=== PATIENT | female | born 1995 | race Caucasian/White ===

== ENCOUNTER 2019-04-09 14:32 | Outpatient (CLI) | payer MEDICAID | END 2019-04-09 23:59 | disposition home or self-care (01) | LOC: CARD DIAG 14:32 | PROVIDERS: ATTEND Nurse Practitioner Obstetrics & Gynecology | DX: R00.0 Tachycardia, unspecified (principal); Z87.74 Personal history of (corrected) congenital malformations of heart and circulatory system; Z87.891 Personal history of nicotine dependence | CPT/HCPCS: 93005; 93306 ==

== ENCOUNTER 2020-01-31 05:13 | Day surgery (SDC) | payer MEDICAID ==
[2020-01-28 09:56] LABS: BASOPHILS % (AUTO) 0.3 % (0-1); EOSINOPHILS # (AUTO) 0.3 X10'3 (0-0.9); EOSINOPHILS % (AUTO) 4.2 % (0-6); LYMPHOCYTES # (AUTO) 2.8 X10'3 (1.1-4.8); MEAN CORPUSCULAR HEMOGLOBIN 28.6 PG (27.0-31.0); MEAN CORPUSCULAR HGB CONC 33.6 g/dL (33.0-36.5); MEAN CORPUSCULAR VOLUME 85.1 FL (78-98); MEAN PLATELET VOLUME 9.8 FL (7.4-10.4); MONOCYTES # (AUTO) 0.5 X10'3 (0-0.9); MONOCYTES % (AUTO) 6.1 % (2-12); NEUTROPHILS # (AUTO) 4.4 X10'3 (1.8-7.7); NEUTROPHILS % (AUTO) 54.4 % (42-75); PRE OP HEMATOCRIT 36.4 % (35.0-45.0); PRE OP HEMOGLOBIN 12.2 g/dL (12.0-16.0); PRE OP PLATELET COUNT 316 X10'3 (140-440); RED BLOOD COUNT 4.28 X10'6 (4.20-5.60); RED CELL DISTRIBUTION WIDTH 15.3 % (11.5-14.5)
[2020-01-28 10:10] LABS: HCG SERUM QL NEGATIVE
[2020-01-28 10:12] LABS: ALBUMIN/GLOBULIN RATIO 1.1 (1.1-1.5); ALKALINE PHOSPHATASE 72 IU/L (46-116); BLOOD UREA NITROGEN 13 MG/DL (7-18); BUN/CREATININE RATIO 17.6 (6.6-38.0); CALCIUM 9.4 MG/DL (8.5-10.1); CHLORIDE 105 MMOL/L (99-107); CREATININE 0.74 MG/DL (0.40-0.90); PRE OP ALT 22 U/L (30-65); PRE OP ANION GAP 10 (8-16); PRE OP AST 15 U/L (10-37); PRE OP BILIRUB, TOTAL 1.2 MG/DL (0.0-1.0); PRE OP GLUCOSE 85 MG/DL (70-104); PRE OP POTASSIUM 3.9 MMOL/L (3.4-5.1); PRE OP SODIUM 142 MMOL/L (135-145); TOTAL PROTEIN 7.7 G/DL (6.4-8.2); eGFR > 90 ML/MIN
[2020-01-31] VITALS (8 sets, daily range): BP systolic 99–133; BP diastolic 54–73
[~2020-01-31] VITALS: Ht 157.5 cm; Wt 102.9 kg
[~2020-01-31 05:13] MED LIST: FLUT16SP20 NAS; MULT-1074 PO; ringers solution, lacted 1,000 ML IV SCH
[2020-01-31] MEDS ORDERED: famotidine 20mg tablet PO ONE (05:30)
[2020-01-31] MEDS ORDERED: LIDOcaine 1% (10mg/ml) 2ml vial ONE (05:35)
[2020-01-31] MEDS ORDERED: fentaNYL/PF 50MCG/1 ML 2ML syringe ONE (07:43)
[2020-01-31] MEDS ORDERED: midazolam 2 mg/2 ml injection ONE (07:43)
[2020-01-31] MEDS ORDERED: ondansetron/PF 4mg/2ml inj ONE (07:45)
[2020-01-31] MEDS ORDERED: dexamethasone sod phosphate 4mg/ml inj. ONE (07:45)
[2020-01-31] MEDS ORDERED: propofol inj 20 ML IV ONE (07:45)
[2020-01-31] MEDS ORDERED: ketorolac trometh. 30mg/ml inj. ONE (07:45)
[2020-01-31] MEDS ORDERED: LIDOcaine 2% (20mg/ml) 5ml vial ONE (07:45)
[2020-01-31] MEDS ORDERED: ringers solution, lacted 1,000 ML IV SCH (07:50)
[2020-01-31] MEDS ORDERED: proCHLORperazine 10 MG/2 ml inj IV PRN (07:50)
[2020-01-31] MEDS ORDERED: morphine 4 MG/ML inj SYRINge IV PRN (07:50)
[2020-01-31] MEDS ORDERED: ondansetron/PF 4mg/2ml inj IV PRN (07:50)
[2020-01-31] MEDS ORDERED: meperidine/PF 25mg/ml syringe IV PRN ×3 (07:50)
[2020-01-31] MEDS ORDERED: morphine 2 MG/ML inj. syringe IV PRN (07:50)
[2020-01-31] MEDS ORDERED: sevoflurane 250ml liquid IH ONE (07:52)
[2020-01-31] MEDS ORDERED: glycopyrrolate 0.2mg/ml inj ONE (07:52)
[2020-01-31] MEDS ORDERED: neostigmine methylsulfate 1 MG/ML 10ml vial ONE (07:52)
[2020-01-31] MEDS ORDERED: rocuronium 10mg/ml inj IV ONE (08:11)
--- NOTE | 2020-01-31 09:09 | NUR ---
Received from OR via , accompanied by Anesthesiologist DR CERVANTES and report given by Anesthesiolgist. AWAKENS TO VOICE. VITALS STABLE. DRESSINGS DI. SHWETHA PAIN.
--- NOTE | 2020-01-31 10:09 | NUR ---
AWAKE AND ORIENTED. VITALS STABLE. DRESSINGS DI. SHWETHA PAIN. HOME WITH HER SPOUSE AT THIS TIME.
== END 2020-01-31 10:09 | disposition home or self-care (01) ==
LOC: PAS 05:13
PROVIDERS: ATTEND Obstetrics & Gynecology
DX: Z30.2 Encounter for sterilization (principal); J45.909 Unspecified asthma, uncomplicated; E66.9 Obesity, unspecified; Z68.41 Body mass index [BMI] 40.0-44.9, adult; Z79.899 Other long term (current) drug therapy; Z90.49 Acquired absence of other specified parts of digestive tract; Z98.890 Other specified postprocedural states; Z87.891 Personal history of nicotine dependence; Z11.59 Encounter for screening for other viral diseases
CPT/HCPCS: 36415; 58670; 80053; 82948; 84703; 85025; J1100; J1885; J2001; J2250; J2405; J2704; J2710; J3010; J7120; U0003; A4618; A7000; J3490

== ENCOUNTER 2020-03-02 20:19 | Inpatient (IN) | payer MEDICAID ==
[~2020-03-02] VITALS: Ht 157.5 cm; Wt 98.6 kg
[~2020-03-02 20:19] MED LIST changes: -ringers solution, lacted 1,000 ML IV SCH
[2020-03-02 22:23] LABS: BASOPHILS % (AUTO) 0.3 % (0-1); EOSINOPHILS # (AUTO) 0.2 X10'3 (0-0.9); EOSINOPHILS % (AUTO) 1.8 % (0-6); HEMATOCRIT 33.4 % (35.0-45.0); HEMOGLOBIN 11.2 g/dl (12.0-16.0); LYMPHOCYTES % (AUTO) 29.3 % (21-51); MEAN CORPUSCULAR HEMOGLOBIN 28.9 PG (27.0-31.0); MEAN CORPUSCULAR HGB CONC 33.5 g/dL (33.0-36.5); MEAN CORPUSCULAR VOLUME 86.4 FL (78-98); MONOCYTES % (AUTO) 7.1 % (2-12); NEUTROPHILS # (AUTO) 8.5 X10'3 (1.8-7.7); NEUTROPHILS % (AUTO) 61.5 % (42-75); PLATELET COUNT 282 X10'3 (140-440); RED BLOOD COUNT 3.87 X10'6 (4.20-5.60); RED CELL DISTRIBUTION WIDTH 15.2 % (11.5-14.5); WHITE BLOOD COUNT 13.8 X10'3 (4.5-11.0)
[2020-03-02 22:40] LABS: ALANINE AMINOTRANSFERASE 28 U/L (12-78); ALBUMIN 3.8 G/DL (3.4-5.0); ALBUMIN/GLOBULIN RATIO 1.2 (1.1-1.5); ALKALINE PHOSPHATASE 62 IU/L (46-116); ANION GAP 7 (8-16); ASPARTATE AMINO TRANSFERASE 11 U/L (10-37); BILIRUBIN,TOTAL 1.1 MG/DL (0.1-1.0); BLOOD UREA NITROGEN 17 MG/DL (7-18); BUN/CREATININE RATIO 18.9 (6.6-38.0); CALCIUM 8.5 MG/DL (8.5-10.1); CHLORIDE 108 MMOL/L (99-107); GLUCOSE 85 MG/DL (70-104); POTASSIUM 3.7 MMOL/L (3.5-5.1); SODIUM 144 MMOL/L (135-145); TOTAL CARBON DIOXIDE 29.4 MMOL/L (24-32); eGFR 78 ML/MIN
[2020-03-03] MEDS ORDERED: magnesium Cl slow-release 64mg tablet PO PRN (00:50)
[2020-03-03] MEDS ORDERED: potassium Cl 20 mEq SR tablet PO PRN ×2 (00:50)
[2020-03-03] MEDS ORDERED: HYDROcodone/acetaminophen 5mg/325mg tablet PO PRN (00:50)
[2020-03-03] MEDS ORDERED: magnesium 4gm in 100ml NS 100 ML IV PRN (00:50)
[2020-03-03] MEDS ORDERED: mag hydrox/Alum hydrox/simeth 30ml oral suspension PO PRN (00:50)
[2020-03-03] MEDS ORDERED: magnesium hydroxide 30ml (MOM) UD suspension PO PRN (00:50)
[2020-03-03] MEDS ORDERED: acetaminophen 325mg tablet PO PRN (00:50)
[2020-03-03] MEDS ORDERED: magnesium 2GM in 50ml NS 50 ML IV PRN (00:50)
[2020-03-03] MEDS ORDERED: potassium CL 10mEq/100ml bag 100 ML IV PRN ×2 (00:50)
[2020-03-03] MEDS ORDERED: ondansetron/PF 4mg/2ml inj IV PRN (00:50)
--- NOTE | 2020-03-03 02:01 | NUR ---
Patient in ED room 14 to be transferred to SURG 340B. Report given to HANSEL Blankenship.
--- NOTE | 2020-03-03 02:26 | NUR ---
Received report from Emily HAMM in the ER. Pt arrived via wheelchair and was able to ambulate to her bed. Pt was on room air, SL with VSS and no signs of distress. Will continue to monitor.
[2020-03-03 02:31] LABS: URINE HCG NEGATIVE (NEG)
[2020-03-03 02:32] LABS: CLARITY,URINE SLIGHTLY CLOUDY (Clear); COLOR,URINE YELLOW (Yellow); GLUCOSE, URINE NEGATIVE (Neg); KETONES,URINE NEGATIVE (Neg); LEUKOCYTE ESTERASE ,URINE NEGATIVE (Neg); NITRITES, URINE NEGATIVE (Neg); OCCULT BLOOD,URINE NEGATIVE (Neg); PROTEIN,URINE NEGATIVE (Neg)
[2020-03-03 02:37] VITALS: BP 111/77
[2020-03-03 02:38] LABS: BACTERIA,URINE NONE SEEN /HPF (Neg); RBC,URINE NONE SEEN /HPF (0-2); SQUAMOUS EPITHELIAL CELL,UR FEW /LPF (FEW); UA COLLECTION TYPE CLN CATCH MIDSTREAM; WBC,URINE 0-4 /HPF (0-4)
--- NOTE | 2020-03-03 06:05 | NUR ---
Patient in room [facility] 340. I have received report from Raeann HAMM and had the opportunity to ask questions and assume patient care.
--- NOTE | 2020-03-03 06:10 | NUR ---
Problems reprioritized. Patient report given, questions answered & plan of care reviewed with Rimma HAMM.
[2020-03-03 06:59] VITALS: BP 95/65
[2020-03-03 07:03] VITALS: BP 95/65
[2020-03-03] MEDS ORDERED: docusate sod 100mg capsule PO SCH (08:00)
[2020-03-03] MEDS ORDERED: K and/or MAG REPLACEMENT MC SCH (08:00)
--- NOTE | 2020-03-03 09:47 | NUR ---
PAGER ID: [phone] MESSAGE: Mike in 340B: needs Ativan for MRI, she's claustrophobic please! Rimma [phone]
[2020-03-03] MEDS ORDERED: LORazepam 2 mg/ml vial IV ONE (09:50)
--- NOTE | 2020-03-03 11:24 | NUR ---
Nutrition consult re: "10 lb wt loss in a month with decreased appetite". Per malnutrition risk screen pt reports 2-13 lb wt loss with no decrease in appetite. Pt with scaled wt hx of 102.9 kg taken 01/30 with a standing scale, current documented wt is 98.6 kg however is unreliable as it isn't scaled. Per H&P pt with no N/V/abdominal pain or change in appetite. Pt on a heart healthy diet documented with 75-100% PO intake first meal. Pt appears well developed, well nourished per ED report. Pt admit with bilat leg numbness, documented with mild weakness to BLE and bilat food 1+ trace edema. Pt currently lacks a minimum of two criteria for malnutrition. Will continue to follow. Addendum: 03/03/20 at [address] Amended: Links added.
[2020-03-03] MEDS ORDERED: GADOTERATE MEGLUMINE 7.5 MMOL/15 ML VIAL IV ONE (12:19)
[2020-03-03 13:23] VITALS: BP 117/67
[2020-03-03 14:28] LABS: BASOPHILS # (AUTO) 0.1 X10'3 (0-0.2); BASOPHILS % (AUTO) 0.6 % (0-1); EOSINOPHILS # (AUTO) 0.2 X10'3 (0-0.9); EOSINOPHILS % (AUTO) 1.6 % (0-6); HEMATOCRIT 35.1 % (35.0-45.0); HEMOGLOBIN 11.7 g/dl (12.0-16.0); LYMPHOCYTES # (AUTO) 2.6 X10'3 (1.1-4.8); LYMPHOCYTES % (AUTO) 24.6 % (21-51); MEAN CORPUSCULAR HEMOGLOBIN 28.6 PG (27.0-31.0); MEAN CORPUSCULAR HGB CONC 33.3 g/dL (33.0-36.5); MEAN PLATELET VOLUME 10.4 FL (7.4-10.4); MONOCYTES # (AUTO) 0.6 X10'3 (0-0.9); NEUTROPHILS # (AUTO) 7.2 X10'3 (1.8-7.7); NEUTROPHILS % (AUTO) 67.2 % (42-75); PLATELET COUNT 295 X10'3 (140-440); RED BLOOD COUNT 4.08 X10'6 (4.20-5.60); RED CELL DISTRIBUTION WIDTH 15.2 % (11.5-14.5); WHITE BLOOD COUNT 10.7 X10'3 (4.5-11.0)
[2020-03-03] MEDS ORDERED: GABA100C PO (14:42)
--- NOTE | 2020-03-03 17:07 | NUR ---
Patient discharged, ambulated out, very stable gait. Tech SBA to lobby. No issues. AFVSS, no distress noted currently at discharge. All paper work completed and signed. Education completed. Patient to follow up with PCP in 1 week.
== END 2020-03-03 17:13 | disposition home or self-care (01) | DRG 58 ==
LOC: ER 20:20 → ED HOLD 03-03 00:46 → SUR 3N 03-03 02:18 → OBSVTOIN 03-03 08:45
PROVIDERS: ADMIT Family Medicine; ATTEND Family Medicine
PROC: BW38YZZ Magnetic Resonance Imaging (MRI) of Head using Other Contrast (ICD-10-PCS; principal; 2020-03-03)
DX: R20.0 Anesthesia of skin (principal); Z98.51 Tubal ligation status; Z79.899 Other long term (current) drug therapy
CPT/HCPCS: 36415; 70546; 80053; 81001; 81025; 84443; 85025; 87081; 97110; 97116; 97163; 99285; A9575; G0378; J2060

== ENCOUNTER 2020-03-28 20:10 | Emergency (ER) | payer MEDICAID ==
[~2020-03-28] VITALS: Ht 154.9 cm; Wt 99.5 kg
[~2020-03-28 20:10] MED LIST changes: +GABA100C PO
[2020-03-28 21:42] VITALS: BP 159/86
== END 2020-03-28 21:45 | disposition home or self-care (01) ==
LOC: ER 20:11
DX: R20.0 Anesthesia of skin (principal); H53.8 Other visual disturbances; Z98.51 Tubal ligation status; Z98.890 Other specified postprocedural states; Z72.89 Other problems related to lifestyle; Z79.899 Other long term (current) drug therapy
CPT/HCPCS: 99281; 99283

== ENCOUNTER 2020-09-14 11:44 | Emergency (ER) | payer MEDICAID ==
[~2020-09-14] VITALS: Ht 157.5 cm; Wt 100.0 kg
[2020-09-14 11:47] VITALS: BP 136/86
[2020-09-14] MEDS ORDERED: ibuprofen 200mg tablet PO ONE (14:40)
[2020-09-14] MEDS ORDERED: HYDR-3965 PO (15:10)
== END 2020-09-14 15:49 | disposition home or self-care (01) ==
LOC: ER 11:45
DX: S99.922A Unspecified injury of left foot, initial encounter (principal); R20.2 Paresthesia of skin; Z98.51 Tubal ligation status; Z72.89 Other problems related to lifestyle; Z79.899 Other long term (current) drug therapy; W05.1XXA Fall from non-moving nonmotorized scooter, initial encounter; Z91.81 History of falling; Y93.89 Activity, other specified; Y92.89 Other specified places as the place of occurrence of the external cause; Y99.8 Other external cause status
CPT/HCPCS: 29515; 73590; 99284

== ENCOUNTER 2021-02-03 00:10 | Emergency (ER) | payer MEDICAID ==
[~2021-02-03] VITALS: Ht 154.9 cm; Wt 98.3 kg
--- NOTE | 2021-02-03 01:32 | NUR ---
Pt didn't finish ABX for UTI because they make her drowsy and she can't afford to fall asleep at work
[2021-02-03] MEDS ORDERED: ONDA4TAB6 PO (02:39)
[2021-02-03] MEDS ORDERED: MECL-159 PO (02:39)
[2021-02-03] MEDS ORDERED: ondansetron 4mg rapidly disintigrating tab PO ONE (02:40)
[2021-02-03] MEDS ORDERED: meclizine 12.5mg tablet PO ONE (02:40)
[2021-02-03 02:45] VITALS: BP 117/76
== END 2021-02-03 02:47 | disposition home or self-care (01) ==
LOC: ER 00:11
DX: R42 Dizziness and giddiness (principal); Z98.51 Tubal ligation status; Z98.890 Other specified postprocedural states; Z72.89 Other problems related to lifestyle; Z79.899 Other long term (current) drug therapy
CPT/HCPCS: 99283; J8597

== ENCOUNTER 2021-08-10 16:59 | Emergency (ER) | payer OTHER, MEDICAID ==
[~2021-08-10] VITALS: Ht 154.9 cm; Wt 95.5 kg
[~2021-08-10 16:59] MED LIST changes: +MECL-159 PO; +ONDA4TAB6 PO
[2021-08-10 17:08] VITALS: BP 135/93
[2021-08-10 18:20] LABS: ALANINE AMINOTRANSFERASE 15 U/L (12-78); ALKALINE PHOSPHATASE 59 IU/L (46-116); ANION GAP 8 (8-16); ASPARTATE AMINO TRANSFERASE 10 U/L (10-37); BILIRUBIN,TOTAL 0.4 MG/DL (0.1-1.0); BLOOD UREA NITROGEN 17 MG/DL (7-18); CHLORIDE 103 MMOL/L (99-107); CREATININE 0.68 MG/DL (0.40-0.90); GLUCOSE 100 MG/DL (70-104); POTASSIUM 3.6 MMOL/L (3.5-5.1); SODIUM 140 MMOL/L (135-145); TOTAL CARBON DIOXIDE 29.1 MMOL/L (24-32); TOTAL PROTEIN 8.2 G/DL (6.4-8.2); eGFR > 90 ML/MIN
[2021-08-10 18:27] LABS: BASOPHILS % (AUTO) 0.3 % (0-1); EOSINOPHILS # (AUTO) 0.1 X10'3 (0-0.9); EOSINOPHILS % (AUTO) 0.9 % (0-6); HEMATOCRIT 35.1 % (35.0-45.0); LYMPHOCYTES # (AUTO) 3.4 X10'3 (1.1-4.8); LYMPHOCYTES % (AUTO) 23.1 % (21-51); MEAN CORPUSCULAR HEMOGLOBIN 29.8 PG (27.0-31.0); MEAN CORPUSCULAR HGB CONC 34.2 g/dL (33.0-36.5); MEAN PLATELET VOLUME 10.1 FL (7.4-10.4); MONOCYTES # (AUTO) 0.7 X10'3 (0-0.9); MONOCYTES % (AUTO) 5.1 % (2-12); NEUTROPHILS # (AUTO) 10.3 X10'3 (1.8-7.7); NEUTROPHILS % (AUTO) 70.6 % (42-75); PLATELET COUNT 324 X10'3 (140-440); RED BLOOD COUNT 4.04 X10'6 (4.20-5.60); RED CELL DISTRIBUTION WIDTH 13.6 % (11.5-14.5); WHITE BLOOD COUNT 14.6 X10'3 (4.5-11.0)
[2021-08-10 19:13] LABS: URINE HCG NEGATIVE (NEG)
[2021-08-10 19:18] LABS: CLARITY,URINE SLIGHTLY CLOUDY (Clear); COLOR,URINE YELLOW (Yellow); GLUCOSE, URINE NEGATIVE (Neg); KETONES,URINE NEGATIVE (Neg); LEUKOCYTE ESTERASE ,URINE TRACE (Neg); NITRITES, URINE NEGATIVE (Neg); OCCULT BLOOD,URINE NEGATIVE (Neg); PROTEIN,URINE NEGATIVE (Neg); UROBILINOGEN,URINE 0.2 E.U/dL (0.2-1.0)
[2021-08-10 19:23] LABS: UA COLLECTION TYPE CLN CATCH MIDSTREAM
[2021-08-10 19:29] LABS: BACTERIA,URINE 1+ /HPF (Neg); MUCUS STRANDS FEW /LPF (Neg); SQUAMOUS EPITHELIAL CELL,UR MODERATE /LPF (FEW)
[2021-08-11] MEDS ORDERED: CEPH250T PO (14:49)
== END 2021-08-11 00:31 | disposition left against medical advice (07) ==
LOC: ER 17:00
DX: R10.84 Generalized abdominal pain (principal); M54.89 Other dorsalgia; Z98.51 Tubal ligation status; Z98.890 Other specified postprocedural states; Z72.89 Other problems related to lifestyle; Z79.899 Other long term (current) drug therapy; Z53.21 Procedure and treatment not carried out due to patient leaving prior to being seen by health care provider
CPT/HCPCS: 36415; 80053; 81001; 81025; 85025

== ENCOUNTER 2021-08-11 14:21 | Emergency (ER) | payer OTHER, MEDICAID ==
[~2021-08-11] VITALS: Ht 154.9 cm; Wt 95.5 kg
[2021-08-11 14:44] VITALS: BP 140/77
[2021-08-11] MEDS ORDERED: CEPH250T PO (14:49)
== END 2021-08-11 14:56 | disposition home or self-care (01) ==
LOC: ER 14:21
DX: N12 Tubulo-interstitial nephritis, not specified as acute or chronic (principal); R10.30 Lower abdominal pain, unspecified; R11.0 Nausea; M54.89 Other dorsalgia; Z98.51 Tubal ligation status; Z98.890 Other specified postprocedural states; Z72.89 Other problems related to lifestyle; Z79.2 Long term (current) use of antibiotics; Z79.899 Other long term (current) drug therapy
CPT/HCPCS: 99283

== ENCOUNTER 2021-08-17 13:23 | Emergency (ER) | payer OTHER, MEDICAID ==
[~2021-08-17] VITALS: Ht 154.9 cm; Wt 95.5 kg
[~2021-08-17 13:23] MED LIST changes: +CEPH250T PO
[2021-08-17 13:26] VITALS: BP 156/94
[2021-08-17 13:47] LABS: BASOPHILS % (AUTO) 0.3 % (0-1); EOSINOPHILS # (AUTO) 0.1 X10'3 (0-0.9); EOSINOPHILS % (AUTO) 1.2 % (0-6); HEMOGLOBIN 12.1 g/dl (12.0-16.0); LYMPHOCYTES # (AUTO) 2.9 X10'3 (1.1-4.8); LYMPHOCYTES % (AUTO) 30.7 % (21-51); MEAN CORPUSCULAR HEMOGLOBIN 29.5 PG (27.0-31.0); MEAN CORPUSCULAR HGB CONC 33.7 g/dL (33.0-36.5); MEAN CORPUSCULAR VOLUME 87.5 FL (78-98); MEAN PLATELET VOLUME 9.3 FL (7.4-10.4); MONOCYTES # (AUTO) 0.6 X10'3 (0-0.9); NEUTROPHILS # (AUTO) 5.9 X10'3 (1.8-7.7); NEUTROPHILS % (AUTO) 61.8 % (42-75); PLATELET COUNT 325 X10'3 (140-440); RED BLOOD COUNT 4.11 X10'6 (4.20-5.60); RED CELL DISTRIBUTION WIDTH 13.9 % (11.5-14.5); WHITE BLOOD COUNT 9.6 X10'3 (4.5-11.0)
[2021-08-17 14:01] LABS: ALANINE AMINOTRANSFERASE 18 U/L (12-78); ALBUMIN 4.1 G/DL (3.4-5.0); ALBUMIN/GLOBULIN RATIO 0.8 (1.1-1.5); ALKALINE PHOSPHATASE 65 IU/L (46-116); ANION GAP 12 (8-16); ASPARTATE AMINO TRANSFERASE 12 U/L (10-37); BILIRUBIN,TOTAL 0.8 MG/DL (0.1-1.0); BLOOD UREA NITROGEN 17 MG/DL (7-18); BUN/CREATININE RATIO 23.9 (6.6-38.0); CALCIUM 9.1 MG/DL (8.5-10.1); CHLORIDE 102 MMOL/L (99-107); CREATININE 0.71 MG/DL (0.40-0.90); GLUCOSE 82 MG/DL (70-104); POTASSIUM 3.7 MMOL/L (3.5-5.1); SODIUM 143 MMOL/L (135-145); TOTAL CARBON DIOXIDE 28.9 MMOL/L (24-32); TOTAL PROTEIN 9.3 G/DL (6.4-8.2); eGFR > 90 ML/MIN
[2021-08-17 14:07] LABS: BETA HCG,QUANTITATIVE < 1.0 mIU/ml
[2021-08-17 14:22] LABS: URINE HCG NEGATIVE (NEG)
[2021-08-17 14:26] LABS: CLARITY,URINE SLIGHTLY CLOUDY (Clear); GLUCOSE, URINE NEGATIVE (Neg); KETONES,URINE NEGATIVE (Neg); LEUKOCYTE ESTERASE ,URINE SMALL (Neg); NITRITES, URINE NEGATIVE (Neg); OCCULT BLOOD,URINE LARGE (Neg); PROTEIN,URINE NEGATIVE (Neg); UROBILINOGEN,URINE 0.2 E.U/dL (0.2-1.0)
[2021-08-17 14:29] LABS: COLOR,URINE STRAW (Yellow); UA COLLECTION TYPE CLN CATCH MIDSTREAM
[2021-08-17 14:37] LABS: BACTERIA,URINE 1+ /HPF (Neg)
[2021-08-17 14:38] LABS: RBC,URINE 0-2 /HPF (0-2); TRANSITIONAL EPI CELLS,URINE MODERATE /HPF; WBC,URINE 0-4 /HPF (0-4)
[2021-08-17 14:43] LABS: SQUAMOUS EPITHELIAL CELL,UR MODERATE /LPF (FEW)
[2021-08-17] MEDS ORDERED: SULF1TAB49 PO (15:42)
== END 2021-08-17 15:56 | disposition home or self-care (01) ==
LOC: ER 13:24
DX: N39.0 Urinary tract infection, site not specified (principal); Z98.51 Tubal ligation status
CPT/HCPCS: 36415; 76856; 80053; 81001; 81025; 84702; 85025; 86885; 86900; 86901; 87077; 87088; 87186; 93976; 99284

== ENCOUNTER 2022-04-26 21:06 | Emergency (ER) | payer MEDICAID, OTHER ==
[~2022-04-26] VITALS: Ht 157.5 cm; Wt 94.8 kg
[~2022-04-26 21:06] MED LIST changes: -CEPH250T PO
[2022-04-26 21:46] LABS: BASOPHILS % (AUTO) 0.3 % (0-1); EOSINOPHILS # (AUTO) 0.2 X10'3 (0-0.9); EOSINOPHILS % (AUTO) 1.6 % (0-6); HEMATOCRIT 35.1 % (35.0-45.0); HEMOGLOBIN 11.7 g/dl (12.0-16.0); LYMPHOCYTES # (AUTO) 3.2 X10'3 (1.1-4.8); LYMPHOCYTES % (AUTO) 32.3 % (21-51); MEAN CORPUSCULAR HEMOGLOBIN 29.2 PG (27.0-31.0); MEAN CORPUSCULAR HGB CONC 33.3 g/dL (33.0-36.5); MEAN CORPUSCULAR VOLUME 87.5 FL (78-98); MEAN PLATELET VOLUME 9.6 FL (7.4-10.4); MONOCYTES # (AUTO) 0.6 X10'3 (0-0.9); MONOCYTES % (AUTO) 6.4 % (2-12); NEUTROPHILS # (AUTO) 5.8 X10'3 (1.8-7.7); NEUTROPHILS % (AUTO) 59.4 % (42-75); PLATELET COUNT 278 X10'3 (140-440); RED BLOOD COUNT 4.01 X10'6 (4.20-5.60); RED CELL DISTRIBUTION WIDTH 14.5 % (11.5-14.5); WHITE BLOOD COUNT 9.8 X10'3 (4.5-11.0)
[2022-04-26 22:01] LABS: ALANINE AMINOTRANSFERASE 16 U/L (12-78); ALBUMIN 4.1 G/DL (3.4-5.0); ALBUMIN/GLOBULIN RATIO 1.2 (1.1-1.5); ALKALINE PHOSPHATASE 54 IU/L (46-116); ANION GAP 9 (8-16); ASPARTATE AMINO TRANSFERASE 10 U/L (10-37); BILIRUBIN,TOTAL 0.7 MG/DL (0.1-1.0); BLOOD UREA NITROGEN 20 MG/DL (7-18); CALCIUM 8.7 MG/DL (8.5-10.1); CHLORIDE 108 MMOL/L (99-107); CREATININE 0.77 MG/DL (0.40-0.90); GLUCOSE 89 MG/DL (70-104); LIPASE 75 U/L (73-393); SODIUM 145 MMOL/L (135-145); TOTAL CARBON DIOXIDE 28.2 MMOL/L (24-32); TOTAL PROTEIN 7.6 G/DL (6.4-8.2); eGFR > 90 ML/MIN
[2022-04-27] MEDS ORDERED: ONDA4TAB12 PO (01:38)
[2022-04-27] MEDS ORDERED: MECL-159 PO (01:38)
[2022-04-27] MEDS ORDERED: meclizine 12.5mg tablet PO ONE (01:40)
[2022-04-27 02:00] VITALS: BP 125/84
== END 2022-04-27 02:02 | disposition home or self-care (01) ==
LOC: ER 21:09 → EDBD 21:09 → ER 04-27 02:02
DX: H81.10 Benign paroxysmal vertigo, unspecified ear (principal); H93.13 Tinnitus, bilateral; Z98.51 Tubal ligation status
CPT/HCPCS: 36415; 80053; 83690; 85025; 93005; 99284; J8597

== ENCOUNTER 2022-08-09 18:03 | Emergency (ER) | payer MEDICAID ==
[~2022-08-09] VITALS: Ht 154.9 cm; Wt 113.6 kg
[~2022-08-09 18:03] MED LIST changes: +ONDA4TAB12 PO
[2022-08-09 18:22] VITALS: BP 123/91
== END 2022-08-09 20:13 | disposition left against medical advice (07) ==
LOC: ER 18:04
DX: H92.02 Otalgia, left ear (principal); Z53.21 Procedure and treatment not carried out due to patient leaving prior to being seen by health care provider

== ENCOUNTER 2023-04-22 10:58 | Inpatient (IN) | payer MEDICAID ==
[~2023-04-22] VITALS: Ht 157.5 cm; Wt 93.2 kg
--- NOTE | 2023-04-22 11:31 | NUR ---
Admission Note: 04/21/2023 This a 27 years old female bib ems for SI from [facility], pt states that her ex-boyfriend cheated on her which upset her so she gave herself an abrasion on the thigh and held a knife on her neck and made suicidal statements with [facility] and was sent here on 5150 hold she denies psychiatric history, psych meds, medical problems, and states she would walk in front of train. Pt. lived in the hotel [place] the [place]. Pt. admitted on unit via 5150. Pt awake A & O at this time. No c/o pain, denies SI, denies VH & H. Pt. acknowledge need to live for children. Assessment complete and pts inventory completed and stored away. Pt. oriented to room. Encouraged pt. to ask nurse for needs; pt. verbalized understanding.
[2023-04-22] MEDS ORDERED: NICOTINE POLACRILEX 2 MG LOZENGE BC PRN (11:35)
[2023-04-22] MEDS ORDERED: loperamide 2mg capsule PO PRN (11:35)
[2023-04-22] MEDS ORDERED: magnesium hydroxide 30ml (MOM) UD suspension PO PRN (11:35)
[2023-04-22] MEDS ORDERED: mag hydrox/Alum hydrox/simeth 30ml oral suspension PO PRN (11:35)
[2023-04-22] MEDS ORDERED: acetaminophen 325mg tablet PO PRN ×2 (11:35)
[2023-04-22 11:59] VITALS: BP 113/77; PULSE 82; RESP 14; TEMP 98.8; O2SAT 100
[2023-04-22 12:11] VITALS: RESP 14; O2SAT 100
[2023-04-22] MEDS ORDERED: nicotine 21mg patch - 24 hr TD ONE (13:05)
[2023-04-22] MEDS ORDERED: NO HOME MEDS (13:38)
--- NOTE | 2023-04-22 17:40 | NUR ---
Progress Note: Pt. c/o rt sided chest pain constant in nurture. Pt. denies pain radiating to arm or jaw, not face droop and pt. has clear speech. Pt. notes this is not the first episode she is experiencing this; it occurs every 5 month but denies having sort any medical attention for it. Pt. A & O at this time. Obtained VS stable and HANSEL Farah notified JELLY Onofre of pt's change of condition. 12 Lead EKG ordered stat -obtained.
[2023-04-22 17:55] VITALS: BP 111/68; PULSE 82; RESP 14; TEMP 98; O2SAT 98
--- NOTE | 2023-04-22 18:18 | NUR ---
EKG obtained and showed normal sinus rhythm. EKG sent to ER and signed off by ER physician.
[2023-04-22 19:00] VITALS: RESP 14; O2SAT 98
[2023-04-22 20:00] VITALS: BP 130/80; PULSE 84; RESP 16; TEMP 98.6; O2SAT 95
[2023-04-22] MEDS ORDERED: traZODone 50mg tablet PO PRN (20:45)
[2023-04-22] MEDS ORDERED: Melatonin 3mg tablet PO SCH (21:00)
[2023-04-22] MEDS ORDERED: Melatonin 3mg tablet PO ONE (21:15)
[2023-04-23] MEDS: Melatonin 3mg tablet PO SCH ×3 (01:06→21:43)
--- NOTE | 2023-04-23 05:17 | NUR ---
Nursing progress note: MIKEY Problem: Admission Note: 04/21/2023 This a 27 years old female bib ems for SI from [facility], pt states that her ex-boyfriend cheated on her which upset her so she gave herself an abrasion on the thigh and held a knife on her neck and made suicidal statements with [facility] and was sent here on 5150 hold she denies psychiatric history, psych meds, medical problems, and states she would walk in front of train. Pt. lived in the hotel across the street from the train track. Interventions: 1:1 assessment, therapeutic communication, active listening, medication administration/education/monitoring, maintained a safe & supportive environment; provided clear & simple instructions, encouraged compliance with fluid restriction, behavior monitoring and intervention as needed; provided distraction, redirection, reality orientation, limit setting, positive reinforcement, and Q15 minute safety checks. Response: Pt received at nursing station. Pt agreeable to 1:1 assessment. Pt states she is currently homeless but has lived at the [facility] for some time. She states she is here because she recently found out her fiance cheated on her. They were together for 1.5 years. She really loved this man and felt sadness. She reports having prior psychiatric issues but this is her first time being hospitalized. Her ex- is being supportive of her through this time. Patient stated she felt suicidal following the breakup but does not feel suicidal right now, just sad. She has 2 children, 4 and 8 year old. Her ex fiance had told patient that he needs someone with more financial stability. 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 Patient feels ready for discharge and reports her ability to access mental health resources if needed. Pt tearful during interview when talking about ex fiamelia cheating on her. Pt doesnt take any psychotropic medications. Pt did have trouble sleeping. Provider notified and Melatonin scheduled/ Trazodone PRN ordered. Pt was compliant with Melatonin. Pt had no further chest pain complaints. She reports fair appetite. Plan: Pt. continues to require medication management and monitoring in a safe and supportive environment until placement is found.
--- NOTE | 2023-04-23 06:04 | NUR ---
MANAGER PRICING documentation: I have reviewed and agree with all interventions, assessments performed and documented by Davey WHITLOCK.
[2023-04-23 07:02] LABS: CHOL/HDL RATIO 3.1 (0.00-4.99); CHOLESTEROL 127 MG/DL (0-200); HDL CHOLESTEROL 41 MG/DL (35-60); LDL CHOLESTEROL 73 MG/DL (50-100); TRIGLYCERIDES 54 MG/DL (20-135)
[2023-04-23 07:04] LABS: HEMOGLOBIN A1C 4.8 % (4.5-6.2)
[2023-04-23 08:00] VITALS: BP 112/77; PULSE 95; RESP 18; TEMP 98; O2SAT 94
[2023-04-23] MEDS: nicotine 21mg patch - 24 hr TD SCH (08:30)
[2023-04-23] MEDS ORDERED: ESCITALOPRAM OXALATE 5 MG TABLET PO ONE (13:00)
[2023-04-23 13:26] LABS: THYROID STIMULATING HORMONE 2.75 ulU/ml (0.34-4.50)
--- NOTE | 2023-04-23 16:46 | NUR ---
Nursing progress note: Diane Problem: This a 27 years old female bib ems for SI from [facility], pt states that her ex-boyfriend cheated on her which upset her so she gave herself an abrasion on the thigh and held a knife on her neck and made suicidal statements with [facility] and was sent here on 5150 hold she denies psychiatric history, psych meds, medical problems, and states she would walk in front of train. Pt. lived in the hotel [place] the street from the train track. Interventions: 1:1 assessment, therapeutic communication, active listening, medication administration/education/monitoring, maintained a safe & supportive environment; provided clear & simple instructions, behavior monitoring and intervention as needed, and Q15 minute safety checks. Response: Received pt asleep in room. Pt ate all meals in the community room and took all medications cooperatively. Pt observed coloring in the community room. Performed 1:1 in community room. Pt denies SI/HI and AVH. Pt had a visit from her father today. Pt appearance is well groomed and she took a shower today. Pt is kind and cooperative with staff. No s/s of distress. Plan: Pt. continues to require medication management and monitoring in a safe and supportive environment until placement is found.
[2023-04-23 19:00] VITALS: RESP 18; O2SAT 98
[2023-04-23 20:00] VITALS: BP 113/85; PULSE 72; RESP 15; TEMP 99; O2SAT 98
--- NOTE | 2023-04-24 05:04 | NUR ---
Nursing progress note: MIKEY Problem: Admission Note: 04/21/2023 This a 27 years old female bib ems for SI from [facility], pt states that her ex-boyfriend cheated on her which upset her so she gave herself an abrasion on the thigh and held a knife on her neck and made suicidal statements with [facility] and was sent here on 5150 hold she denies psychiatric history, psych meds, medical problems, and states she would walk in front of train. Pt. lived in the hotel [place] the street from the train track. Interventions: 1:1 assessment, therapeutic communication, active listening, medication administration/education/monitoring, maintained a safe & supportive environment; provided clear & simple instructions, encouraged compliance with fluid restriction, behavior monitoring and intervention as needed; provided distraction, redirection, reality orientation, limit setting, positive reinforcement, and Q15 minute safety checks. Response: Pt received in hallway, smiling. Pt states she feels much better from yesterday. Pt states the medication is effective. She reports melatonin was effective after waking up in the middle of the night. She states she normally wakes up in the middle of the night to let in her ex fiance home but recognized that she is no longer with him. She feels safe on the unit and trusting with staff. Pt has good support system including ex , parents, and relatives. She reports she will be seeing her psychiatrist/therapist when she discharges. She understands the importance of continuing her medications in order to improve her mental health. She reports she was able to laugh on the phone today, which is a change. Pt accessed melatonin repeat dose this shift. Pt appears to be responding well to treatment. Pt will need access to community resources in the event she may need them. Plan: Pt. continues to require medication management and monitoring in a safe and supportive environment until placement is found.
[2023-04-24 08:00] VITALS: BP 138/88; PULSE 87; RESP 18; TEMP 98.6; O2SAT 96
[2023-04-24] MEDS ORDERED: ESCITALOPRAM OXALATE 5 MG TABLET PO SCH (08:00)
[2023-04-24] MEDS: nicotine 21mg patch - 24 hr TD SCH (08:19)
[2023-04-24] MEDS ORDERED: ESCI-8 PO (11:56)
[2023-04-24] MEDS ORDERED: NICO-687 TD (11:56)
[2023-04-24] MEDS ORDERED: MELA3TAB39 PO (11:56)
[2023-04-24] MEDS ORDERED: NICO-907 BC (11:56)
[2023-04-24] MEDS ORDERED: TRAZ-251 PO (11:56)
--- NOTE | 2023-04-24 14:06 | NUR ---
Discharge Note: Discharged home, picked up by friend. Pt discharged with all belongings and valuables. RN went over discharge paperwork with pt including firearms restriction, emergency phone numbers including 911, and discharge medications along with f/u plan. Pt signed all paperwork. Pt denies SI/HI, and AVH. Pt is A&O X4 and in no apparent distress.
== END 2023-04-24 16:00 | disposition home or self-care (01) | DRG 754 ==
LOC: ADULT MH 11:26
PROVIDERS: ADMIT Psychiatry & Neurology Psychiatry; ATTEND Psychiatry & Neurology Psychiatry
DX: F32.9 Major depressive disorder, single episode, unspecified (principal); F17.210 Nicotine dependence, cigarettes, uncomplicated; J45.909 Unspecified asthma, uncomplicated; Z59.00 Homelessness unspecified; Z80.0 Family history of malignant neoplasm of digestive organs; Z83.3 Family history of diabetes mellitus; Z85.07 Personal history of malignant neoplasm of pancreas; Z91.410 Personal history of adult physical and sexual abuse
CPT/HCPCS: 36415; 80061; 83036; 84443; 87081; 93005

== ENCOUNTER 2023-12-06 20:23 | Emergency (ER) | payer MEDICAID ==
[~2023-12-06] VITALS: Ht 154.9 cm; Wt 104.5 kg
[~2023-12-06 20:23] MED LIST changes: +ESCI-8 PO; -FLUT16SP20 NAS; -GABA100C PO; -MECL-159 PO; +MELA3TAB39 PO; -MULT-1074 PO; +NICO-687 TD; +NICO-907 BC; +NO HOME MEDS; -ONDA4TAB12 PO; -ONDA4TAB6 PO; +TRAZ-251 PO
[2023-12-06 20:43] VITALS: BP 152/93; PULSE 110; RESP 16; TEMP 98.2; O2SAT 95
[2023-12-06] MEDS ORDERED: IBUP-1984 PO (21:29)
== END 2023-12-06 21:45 | disposition home or self-care (01) ==
LOC: ER 20:23
DX: S61.551A Open bite of right wrist, initial encounter (principal); S61.452A Open bite of left hand, initial encounter; J45.909 Unspecified asthma, uncomplicated; Z79.899 Other long term (current) drug therapy; Z79.1 Long term (current) use of non-steroidal anti-inflammatories (NSAID); Z98.51 Tubal ligation status; W54.0XXA Bitten by dog, initial encounter; Y93.89 Activity, other specified; Y92.89 Other specified places as the place of occurrence of the external cause; Y99.8 Other external cause status
CPT/HCPCS: 73110; 99283